=== PATIENT | female | born 1930 | race Caucasian/White ===

== ENCOUNTER 2016-05-20 09:17 | Outpatient (CLI) | payer OTHER ==
[~2016-05-20 09:17] MED LIST: ALPRAZOLAM0.5 MG PO; BENADRYL25 MG PO; CITALOPRAM HYDR40 MG PO; CLOPIDOGREL75 MG PO; FLUTICASONE PR50 MCG; LEVOTHYROXINE50 MCG PO; LITHIUM CARBON150 MG PO; NORCO1 TA1 PO; PRAVASTATIN SOD40 MG PO; VITAMIN D-31000 UNIT PO
--- NOTE | 2016-05-20 10:00 | DIAGNOSTIC IMAGING REPORT ---
PROCEDURE: XR CHEST 2 VIEW INDICATION: COUGH, initial encounter TECHNIQUE: PA and lateral view. COMPARISON: Chest x-ray 05/25/2015 FINDINGS: Mild hyperinflation. Right mid lung scarring. Cardiovascular structures are normal. Osteopenia with stable mild mid and lower thoracic spine compression fractures. IMPRESSION: 1. No acute changes 2. COPD with right mid lung scarring.
== END 2016-05-20 23:00 ==
LOC: XR SRH 09:17
DX: J44.9 Chronic obstructive pulmonary disease, unspecified (principal)